=== PATIENT | female | born 1970 | race Caucasian/White ===

== ENCOUNTER 2020-09-15 21:18 | Emergency (ER) | payer OTHER ==
[2020-09-15 21:34] VITALS: BP 115/76; PULSE 102; TEMP 98.1; BMI 22.3
[2020-09-15] MEDS ORDERED: DIPHTH,PERTUSS(ACELL),TET 0.5 ML DISP.SYRIN IM ONE (21:50)
[2020-09-15] MEDS ORDERED: ACETAMINOPHEN 325 MG TABLET (FP) PO ONE (21:50)
[2020-09-15] MEDS ORDERED: LIDOCAINE HCL 1%, 10 MG/ML (20ML VIAL) ONE (21:56)
== END 2020-09-15 22:32 | disposition home or self-care (01) ==
LOC: JER 21:18
PROC: 0JQ10ZZ Repair Face Subcutaneous Tissue and Fascia, Open Approach (ICD-10-PCS; principal; 2020-09-15)
PROC: 3E0234Z Introduction of Serum, Toxoid and Vaccine into Muscle, Percutaneous Approach (ICD-10-PCS; 2020-09-15)
DX: S01.81XA Laceration without foreign body of other part of head, initial encounter (principal)
CPT/HCPCS: 90715; 99285-25

== ENCOUNTER 2020-09-19 00:50 | Emergency (ER) | payer OTHER ==
[2020-09-19 01:53] VITALS: TEMP 98.1; BMI 24.0
[2020-09-19 02:44] LABS: BASO % 0.5 % (0-2.0); EOS % 3.3 % (0-4.5); HEMATOCRIT 38.4 % (32.4-45.2); HEMOGLOBIN 12.9 GM/dL (10.7-15.3); LYMPH % 38.6 % (8-40); MCH 30.2 pg (25.7-33.7); MCHC 33.7 g/dl (32.0-36.0); MEAN CELL VOLUME 89.5 fl (80-96); MEAN PLT VOLUME 7.9 fl (7.5-11.1); MONO % 15.1 % (3.8-10.2); NEUT % 42.5 % (42.8-82.8); PLATELET COUNT 307 K/MM3 (134-434); RBC 4.29 M/mm3 (3.60-5.2); RDW 13.3 % (11.6-15.6); WHITE BLOOD COUNT 11.1 K/mm3 (4.0-10.0)
[2020-09-19 02:51] VITALS: BP 122/73; PULSE 84
[2020-09-19 03:01] LABS: CHLORIDE 104 mmol/L (98-107); POTASSIUM 4.2 mmol/L (3.5-5.1); SODIUM 138 mmol/L (136-145)
[2020-09-19 03:03] LABS: ALBUMIN 3.8 g/dl (3.4-5.0); ANION GAP 6 MMOL/L (8-16); CALCIUM 9.5 mg/dL (8.5-10.1); CO2 27 mmol/L (21-32)
[2020-09-19 03:04] LABS: BLOOD UREA NITROGEN 12.8 mg/dL (7-18)
[2020-09-19 03:07] LABS: CREATININE 0.9 mg/dL (0.55-1.3); SGOT/AST 24 U/L (15-37); SGPT/ALT 35 U/L (13-61)
[2020-09-19 03:08] LABS: BILIRUBIN,TOTAL 0.2 mg/dL (0.2-1)
[2020-09-19 03:09] LABS: ALK PHOS 127 U/L (45-117)
[2020-09-19 03:11] LABS: GLUCOSE,RANDOM 98 mg/dL (74-106)
[2020-09-19] MEDS ORDERED: ACETAMINOPHEN 325 MG TABLET (FP) PO ONE (03:31)
[2020-09-19] MEDS ORDERED: ACETAMINOPHEN 325 MG TABLET (FP) ONE (03:34)
[2020-09-19 04:41] LABS: N-TERMINAL BNP 47.6 pg/ml (5-125)
== END 2020-09-19 04:55 | disposition left against medical advice (07) ==
LOC: JER 00:50
DX: R07.9 Chest pain, unspecified (principal)
CPT/HCPCS: 36415; 71046-TC-FY; 80053; 82550; 83880; 84484; 85025; 93005; 93010; 99285-25; C9803; U0003; U0005

== ENCOUNTER 2020-09-30 14:42 | Emergency (ER) | payer OTHER ==
[2020-09-30 15:23] VITALS: BP 116/76; PULSE 93; TEMP 98.2; BMI 28.3
== END 2020-09-30 15:24 | disposition home or self-care (01) ==
LOC: JER 14:42
DX: Z48.02 Encounter for removal of sutures (principal)
CPT/HCPCS: 99281-25

== ENCOUNTER 2024-03-08 00:40 | Emergency (ER) | payer OTHER ==
[2024-03-08 01:04] VITALS: BP 112/74; PULSE 84; RESP 22; TEMP 98.1; BMI 23.3
[2024-03-08 01:43] LABS: BASO % 0.7 % (0-2.0); EOS % 3.4 % (0-4.5); HEMATOCRIT 37.5 % (32.4-45.2); HEMOGLOBIN 12.4 GM/dL (10.7-15.3); LYMPH % 36.4 % (8-40); MCH 29.4 pg (25.7-33.7); MCHC 33.1 g/dl (32.0-36.0); MONO % 10.7 % (3.8-10.2); NEUT % 48.8 % (42.8-82.8); PLATELET COUNT 318 10^3/uL (134-434); RBC 4.22 M/mm3 (3.60-5.2); RDW 13.7 % (11.6-15.6); WHITE BLOOD COUNT 9.8 K/mm3 (4.0-10.0)
[2024-03-08 02:00] LABS: POTASSIUM 4.2 mmol/L (3.5-5.1)
[2024-03-08 02:03] LABS: ALBUMIN 3.7 g/dl (3.4-5.0); BLOOD UREA NITROGEN 18.7 mg/dL (7-18); CALCIUM 9.1 mg/dL (8.5-10.1); MAGNESIUM 2.1 mg/dL (1.8-2.4)
[2024-03-08 02:07] LABS: BILIRUBIN,TOTAL 0.2 mg/dL (0.2-1)
[2024-03-08 02:08] LABS: TOT PROT 7.2 g/dl (6.4-8.2)
[2024-03-08] MEDS ORDERED: KETOROLAC TROMETHAMINE 15 MG/ML VIAL ONE (03:41)
[2024-03-08] MEDS: KETOROLAC TROMETHAMINE 15 MG/ML VIAL IVPUSH ONE (03:44)
== END 2024-03-08 05:02 | disposition home or self-care (01) ==
LOC: JER 00:40
PROC: 3E0333Z Introduction of Anti-inflammatory into Peripheral Vein, Percutaneous Approach (ICD-10-PCS; principal; 2024-03-08)
DX: M25.512 Pain in left shoulder (principal); R07.9 Chest pain, unspecified; M94.0 Chondrocostal junction syndrome [Tietze]
CPT/HCPCS: 36415; 71045-TC-FY; 80053; 83735; 84484; 85025; 93005; 93010; 99285-25

== ENCOUNTER 2024-06-24 12:13 | Emergency (ER) | payer OTHER ==
[2024-06-24 12:26] VITALS: BP 115/64; PULSE 108; RESP 18; TEMP 102.7; BMI 28.3
[2024-06-24] MEDS ORDERED: DEXAMETHASONE SOD PHOSPHATE 10 MG/1 ML VIAL ONE (13:21)
[2024-06-24] MEDS ORDERED: ACETAMINOPHEN 500 MG TABLET (FP) ONE ×2 (13:21→15:34)
[2024-06-24] MEDS ORDERED: ALBUTEROL SO4 2.5/IPRATROPIUM 0.5 INH SOL 3 ML VIAL.NEB. NEB ONE ×2 (13:21→13:31)
[2024-06-24] MEDS: DEXAMETHASONE SOD PHOSPHATE 10 MG/1 ML VIAL PO ONE (13:26)
[2024-06-24] MEDS: ALBUTEROL SO4 2.5/IPRATROPIUM 0.5 INH SOL 3 ML VIAL.NEB. NEB SCH (13:27)
[2024-06-24] MEDS ORDERED: KETOROLAC TROMETHAMINE 15 MG/ML VIAL ONE (13:28)
[2024-06-24] MEDS: ACETAMINOPHEN 500 MG TABLET (FP) PO ONE (13:28)
[2024-06-24] MEDS: KETOROLAC TROMETHAMINE 30 MG/1 ML VIAL IM ONE (13:36)
[2024-06-24] MEDS ORDERED: KETOROLAC TROMETHAMINE 30 MG/1 ML VIAL ONE (15:34)
== END 2024-06-24 16:05 | disposition home or self-care (01) ==
LOC: JERFT 12:13
PROC: 3E0133Z Introduction of Anti-inflammatory into Subcutaneous Tissue, Percutaneous Approach (ICD-10-PCS; principal; 2024-06-24)
PROC: 3E0F7GC Introduction of Other Therapeutic Substance into Respiratory Tract, Via Natural or Artificial Opening (ICD-10-PCS; 2024-06-24)
DX: J10.1 Influenza due to other identified influenza virus with other respiratory manifestations (principal); R50.9 Fever, unspecified; R05.9 Cough, unspecified; M79.10 Myalgia, unspecified site; R51.9 Headache, unspecified; R09.89 Other specified symptoms and signs involving the circulatory and respiratory systems; R00.0 Tachycardia, unspecified; R06.2 Wheezing; Z20.822 Contact with and (suspected) exposure to COVID-19
CPT/HCPCS: 0241U-QW; 71046-TC-FY; 87651; 99284-25; J1100